=== PATIENT | male | born 1990 | race Caucasian/White ===

== ENCOUNTER 2021-01-12 12:17 | Emergency (ER) | payer SELFPAY ==
[~2021-01-12] VITALS: Ht 175.3 cm; Wt 81.8 kg
[2021-01-12 13:00] VITALS: BP 162/84
--- NOTE | 2021-01-12 13:45 | PHYS DOC ---
Past History Additional Past Medical Histor: Dental caries/abscesses General Adult EDM: Chief Complaint: DENTAL PROBLEM HPI: HPI: Patient is a 30 year old male who presents with left-sided dental pain. Patient reports he has had dental issues and pain for years, however his current pain has significantly worsened over the past 3 hours. He rates his pain 10/10 on the left side of his mouth, both upper and lower jaw. Patient denies facial swelling, eye pain, fever/chills, discharge or foul taste inside of his mouth. Patient reports he does not have regular dental care. In the past, he has been prescribed clindamycin, which improved the infections. He has no other complaints at this time. Review of Systems: Review of Systems: ROS negative except as mentioned in HPI. Physical Exam: PE: Constitutional: Patient is tearful and holds his hand to the left side of his face. Otherwise well developed, well nourished, non-toxic appearance. HENT: Normocephalic, atraumatic, no facial swelling, bilateral external ears normal, oropharynx moist, poor dentition - infected dental cavity to the rear lower molar on left side and dental cavity with surrounding swelling and erythem a to rear upper molar left side, nose normal. Eyes: PERRLA, EOMI, conjunctiva normal, no discharge. Neck: Normal range of motion, no tenderness, supple without LAD, no stridor. Cardiovascular: Heart rate regular rhythm, no murmur. Lungs & Thorax: Bilateral breath sounds clear to auscultation. Heart Score: C/O Chest Pain: No Course & Med Decision Making: Course & Med Decision Making Pertinent Labs and Imaging studies reviewed. (See chart for details) I discussed with the patient that regular dental care is extremely important for him, as he has longstanding history of dental pain and abscesses. Additionally, risk of dental infection leading to infective endocarditis discussed. Patient provided with fentanyl here in the department. He will be sent home with prescriptions for tramadol as well as clindamycin. Patient should return to the emergency department if he develops any chest pain, fever/chills or his pain becomes unmanageable at home. Patient understands and is agreeable to discharge plan. Renan Disclaimer: Renan Disclaimer: This electronic medical record was generated, in whole or in part, using a voice recognition dictation system. Departure Departure: Impression: Primary Impression: Dental abscess Additional Impressions: Hx of dental abscess Poor dentition Disposition: HOME / SELF CARE / HOMELESS Condition: STABLE Referrals: PCP,UNKNOWN (PCP) Patient Instructions: Dental Abscess, Dental Caries, Dental Pain, [id number] Additional Instructions: As discussed, it is important that you receive regular dental care given your history of cavities and abscess. Please take full course of antibiotics prescribed to you today. A list of dental clinics was provided to you today, which you should call to schedule an appointment with as soon as possible. Please return to the emergency department if your symptoms worsen or you develop chest pain, fever/chills, or any other new symptoms. Scripts Tramadol Hcl (TRAMADOL HCL) 50 Mg Tablet 50 MG PO PRN Q6HRS PRN for PAIN, #30 TAB Prov: KIRSTEN SANCHEZ 01/12/21 Clindamycin Hcl (CLINDAMYCIN HCL) 150 Mg Capsule 3 CAP PO TID for dental abscess for 7 Days, #63 CAP Take 3 capsules by mouth 3 times a day for 7 days. Prov: KIRSTEN SANCHEZ 01/12/21 KIRSTEN SANCHEZ Jan 12, 2021 13:45
[2021-01-12] MEDS ORDERED: TRAM50TA PO (14:16)
[2021-01-12] MEDS ORDERED: CLIN150C16 PO (14:16)
== END 2021-01-12 15:02 | disposition home or self-care (01) ==
LOC: ER 12:17
DX: K04.7 Periapical abscess without sinus (principal); K02.9 Dental caries, unspecified
CPT/HCPCS: 96372; 99283; J3010